=== PATIENT | male | born 1950 | race Caucasian/White ===

== ENCOUNTER → 2018-07-15 | Outpatient (CLI) | payer BC ==
--- NOTE | 2018-07-15 15:30 | US ---
EXAMINATION TYPE: US extremity nonvasculr ltd LT DATE OF EXAM: 07/15/2018 COMPARISON: CLINICAL HISTORY: M71.22 synovial fluid. Posterior left knee discomfort with slight protrusion. No i njury. Posterior left knee scanned. Nonvascular complex mass seen = 5.9 x 6.1 x 3.2 cm. Contralateral images taken. IMPRESSION: Suspect moderate to large size nonsimple popliteal/Odell's cyst. This can be confirmed w ith knee MRI if desired.
== END | disposition home or self-care (01) ==
LOC: RADUSWWP 11:28
PROVIDERS: ATTEND Family Medicine
DX: M71.22 Synovial cyst of popliteal space [Baker], left knee (principal)

== ENCOUNTER → 2019-05-15 | Outpatient (CLI) | payer BC ==
--- NOTE | 2019-05-15 15:14 | US ---
EXAMINATION TYPE: US venous doppler duplex LE RT DATE OF EXAM: 05/15/2019 2:07 PM COMPARISON: NONE CLINICAL HISTORY: M79.661,Pain in right lower leg I80.9 Phlebitis an. Swelling right lower leg after pushing water out of outside waterbed. SIDE PERFORMED: Right TECHNIQUE: The lower extremity deep venous system is examined utilizing real time linear array sonog eleni with graded compression, doppler sonography and color-flow sonography. VESSELS IMAGED: Common Femoral Vein Deep Femoral Vein Greater Saphenous Vein * Femoral Vein Popliteal Vein limitedly seen due to anterior mass compression on vein Proximal Calf Veins (* superficial vessels) Right Leg: Negative for DVT as able to visualize due to muscle mass compression effect on vessels. R ight PTV compression is documented. possible muscle tear from popliteal fossa distally to ankle level with heterogeneous muscle appearance and complex fluid area noted mid and inferiorly = 34.3 x 6.4 x 5.3cm. IMPRESSION: 1. No definite evidence for DVT. 2. Intramuscular tear with hematoma.
== END | disposition home or self-care (01) ==
LOC: RADUSWWP 14:03
PROVIDERS: ATTEND Orthopaedic Surgery Hand Surgery
DX: S86.911A Strain of unspecified muscle(s) and tendon(s) at lower leg level, right leg, initial encounter (principal); S80.11XA Contusion of right lower leg, initial encounter

== ENCOUNTER 2019-05-20 12:46 | Observation (INO) | payer BC, MEDICARE ==
[2019-05-20 12:53] VITALS: RESP 18
--- NOTE | 2019-05-20 13:28 | ED ---
General Adult HPI - General Chief complaint: Extremity Injury, Lower Stated complaint: Rt leg swelling Time Seen by Provider: 05/20/19 13:02 Source: patient Mode of arrival: ambulatory Limitations: no limitations - History of Present Illness Initial comments: Dictation was produced using [employer] dictation software. please excuse any gra mmatical, word or spelling errors. Chief Complaint: 69-year-old male presents with right calf pain. History of Present Illness: 69-year-old male presents with right calf pain. Proximally 5 days ago he was seen in the emergency department for right calf pain and swelling. He had ultrasound performed that time showing intramuscular tear with small hematoma. He states the swelling in his leg went down since initial presentation however he does complain of some significant right calf pain. Patient not on any anticoagulation medications. She doesn't remember any specific inciting event causing injury to his right muscle. Denies any shortness of breath no chest pain The ROS documented in this emergency department record has been reviewed and confirmed by me. Those systems with pertinent positive or negative responses have been documented in the HPI. All other systems are other negative and/or noncontributory. PHYSICAL EXAM: General Impression: Alert and oriented x3, not in acute distress HEENT: Normocephalic atraumatic, extra-ocular movements intact, pupils equal and reactive to light bilaterally, mucous membranes moist. Cardiovascular: Heart regular rate and rhythm, S1&S2 audible, no murmurs, rubs or gallops Chest: Lungs clear to auscultation bilaterally, no rhonchi, no wheeze, no rales Abdomen: Bowel sounds present, abdomen soft, non-tender, non-distended, no organomegaly Musculoskeletal: Pulses present and equal in all extremities, 2+ pitting edema of the right lower extremity compared to the left with tenderness to Motor: no focal deficits noted Neurological: CN II-XII grossly intact, no focal motor or sensory deficits noted Skin: Intact with no visualized rashes Psych: Normal affect and mood ED course: 69 y old male presents with right calf pain. Patient was seen in the emergency department 5 days ago had a negative ultrasound for deep venous thrombosis. He was ever found to have a calf tear. On arrival are within acceptable limits. Laboratory evaluation obtained. CBC, metabolic panel is unremarkable. Computed tomography scan of the lower extremity was obtained showing heterogeneous hypodensity involving the medial gastrocnemius. Could represent intramuscular hematoma versus hemorrhagic neoplasm sarcoma. Patient denies any overt history of trauma. It sounds like his symptoms have been progressive and atraumatic. There is concern for new diagnosis of soft tissue cancer. Is also incidental findings of bladder wall thickening. Patient does not have any bladder symptoms at this time. Results were discussed with patient. They requested to be admitted to observation unit with orthopedic surgery on consult. [facility] seen [facility] with a doctor in the past. He will be placed on consult. - Related Data Home Medications Medication Instructions Recorded Confirmed Atorvastatin [Lipitor] 20 mg PO HS 05/20/19 05/20/19 Levothyroxine Sodium [Synthroid] 75 mcg PO DAILY 05/20/19 05/20/19 Lisinopril 30 mg PO HS 05/20/19 05/20/19 Allergies Allergy/AdvReac Type Severity Reaction Status Date / Time Penicillins Allergy Rash/Hives Verified 05/20/19 13:23 Review of Systems ROS Statement: Those systems with pertinent positive or pertinent negative responses have been documented in the HPI. ROS Other: All systems not noted in ROS Statement are negative. Past Medical History Past Medical History: No Reported History History of Any Multi-Drug Resistant Organisms: None Reported Past Surgical History: No Surgical Hx Reported Past Psychological History: No Psychological Hx Reported Smoking Status: Never smoker Past Alcohol Use History: Occasional Past Drug Use History: Unable to Obtain General Exam Limitations: no limitations Course Vital Signs 05/20/19 12:50 Temperature 98.3 F Pulse Rate 78 Respiratory 18 Rate Blood Pressure 145/79 O2 Sat by Pulse 97 Oximetry Medical Decision Making - Lab Data Result diagrams: 05/20/19 13:51 05/20/19 13:51 Lab Results 05/20/19 05/20/19 Range/Units 13:51 13:51 WBC 9.3 (3.8-10.6) k/uL RBC 3.62 L (4.30-5.90) m/uL Hgb 11.5 L (13.0-17.5) gm/dL Hct 33.7 L (39.0-53.0) % MCV 93.1 (80.0-100.0) fL MCH 31.6 (25.0-35.0) pg MCHC 34.0 (31.0-37.0) g/dL RDW 14.3 (11.5-15.5) % Plt Count 170 (150-450) k/uL Neutrophils % 76 % Lymphocytes % 11 % Monocytes % 7 % Eosinophils % 4 % Basophils % 1 % Neutrophils # 7.1 (1.3-7.7) k/uL Lymphocytes # 1.1 (1.0-4.8) k/uL Monocytes # 0.6 (0-1.0) k/uL Eosinophils # 0.3 (0-0.7) k/uL Basophils # 0.1 (0-0.2) k/uL Sodium 140 (137-145) mmol/L Potassium 4.5 (3.5-5.1) mmol/L Chloride 106 (98-107) mmol/L Carbon Dioxide 28 (22-30) mmol/L Anion Gap 6 mmol/L BUN 19 (9-20) mg/dL Creatinine 0.98 (0.66-1.25) mg/dL Est GFR (CKD-EPI)AfAm >90 (>60 ml/min/1.73 sqM) Est GFR (CKD-EPI)NonAf 79 (>60 ml/min/1.73 sqM) Glucose 108 H (74-99) mg/dL Calcium 9.2 (8.4-10.2) mg/dL Disposition Clinical Impression: Calf pain Disposition: ADMITTED IP TO THIS HOSP Condition: Fair Referrals: Cody Toney MD [Primary Care Provider] - 1-2 days Decision Time: 16:47
[2019-05-20 14:08] LABS: Basophils # (A) 0.1 k/uL (0-0.2); Basophils % (A) 1 %; Eosinophils # (A) 0.3 k/uL (0-0.7); Eosinophils % (A) 4 %; HCT 33.7 % (39.0-53.0); HGB 11.5 gm/dL (13.0-17.5); Lymphocytes # (A) 1.1 k/uL (1.0-4.8); Lymphocytes % (A) 11 %; MCH 31.6 pg (25.0-35.0); MCV 93.1 fL (80.0-100.0); Mean Platelet Volume 9.8; Monocytes # (A) 0.6 k/uL (0-1.0); Monocytes % (A) 7 %; Neutrophils # (A) 7.1 k/uL (1.3-7.7); Neutrophils % (A) 76 %; Platelet Count 170 k/uL (150-450); RBC 3.62 m/uL (4.30-5.90); RDW 14.3 % (11.5-15.5); WBC 9.3 k/uL (3.8-10.6)
[2019-05-20 14:15] LABS: African American GFR (CKD) >90 (>60 ml/min/1.73 sqM); Anion Gap 6 mmol/L; Blood Urea Nitrogen 19 mg/dL (9-20); Calcium 9.2 mg/dL (8.4-10.2); Carbon Dioxide 28 mmol/L (22-30); Chloride 106 mmol/L (98-107); Glucose 108 mg/dL (74-99); Non-African American GFR(CKD) 79 (>60 ml/min/1.73 sqM); Potassium 4.5 mmol/L (3.5-5.1); Sodium 140 mmol/L (137-145)
--- NOTE | 2019-05-20 16:21 | CT ---
EXAMINATION TYPE: CT lower extremity RT w con DATE OF EXAM: 05/20/2019 COMPARISON: None HISTORY: 69-year-old male Right leg swelling, pain, difficulty walking. TECHNIQUE: Contiguous axial scanning of the of the right lower extremity or the midfoot level perform ed with IV Contrast, patient injected with 100 mL of Isovue 300. Coronal/sagittal reconstructions per formed. CT DLP: 991.5 mGycm Automated exposure control for dose reduction was used. FINDINGS: Scanning was performed through into the midfoot region. Circumferential bladder wall thickening. Correlate to exclude cystitis. Stellate sclerotic focus within the right femoral neck probably a bone island. Consider six-month fol low-up radiograph to reassess. Mild degenerative change of the right hip. Moderate right and small left hydroceles. This should be correlated clinically. There is extensive subcutaneous soft tissue swelling at the level of the hand likely with small to mo derate knee joint effusion and Odell's cyst measuring approximately 4 cm long. There is marked heterogeneity in enlargement with associated increased density involving the medial g astrocnemius. No soft tissue gas is seen. Bones: No osseous destructive process seen. IMPRESSION: 1. EXPANSION AND HETEROGENEOUS HYPERDENSITY INVOLVING THE MEDIAL GASTROCNEMIUS. CORRELATE FOR EXTENSI VE INTRAMUSCULAR HEMATOMA. CLOSE CLINICAL SURVEILLANCE IS RECOMMENDED TO ENSURE GLANDULAR INVOLUTION AND TO EXCLUDE AN UNDERLYING HEMORRHAGIC NEOPLASM/SARCOMA. CORRELATE FOR ANY ANTICOAGULATION STATUS. 2. SMALL LEAKING ODELL'S CYST, SMALL KNEE JOINT EFFUSION. CIRCUMFERENTIAL BLADDER WALL THICKENING. CO RRELATE TO EXCLUDE CYSTITIS. 3. STELLATE, SCLEROTIC LESION WITHIN THE FEMORAL NECK PROBABLY REPRESENTS A BONE ISLAND. CONSERVATIVE 3-6 MONTH FOLLOW-UP RADIOGRAPHS RECOMMENDED TO REASSESS.
[2019-05-20] MEDS ORDERED: oxyCODONE-APAP 5-325MG 1 EACH TAB PO PRN (16:44)
[2019-05-20] MEDS ORDERED: ONDANSETRON 4 MG/2 ML VIAL IVP PRN (16:44)
[2019-05-20] MEDS ORDERED: NALOXONE 0.4 MG/ML 1 ML VIAL IV PRN (16:44)
[2019-05-20] MEDS ORDERED: SODIUM CHLORIDE 0.9% 1,000 ML IV SCH (16:45)
[2019-05-20 17:21] LABS: Appearance,Urine Clear (Clear); Bacteria,Urine Occasional /hpf; Bilirubin,Urine Negative (Negative); Blood,Urine Negative (Negative); Color,Urine Yellow; Glucose,Urine (UA) Negative (Negative); Ketones,Urine Negative (Negative); Leukocyte Esterase,Urine Small (Negative); Mucus,Urine Rare /hpf; Nitrite,Urine Positive (Negative); Protein,Urine Negative (Negative); Specific Gravity,Urine 1.042 (1.001-1.035); Urobilinogen,Urine <2.0 mg/dL (<2.0); WBC,Urine 7 /hpf (0-5)
--- NOTE | 2019-05-20 18:49 | P.HPIM ---
History of Present Illness H&P Date: 05/20/19 Chief Complaint: right calf swelling Patient is a 69-year-old male past medical history of hypertension, dyslipidemia, and hypothyroidism who presented to the emergency department due to right calf pain and swelling. On arrival to the ER his vital signs were within normal limits. Laboratory analysis showed a hemoglobin of 11.5. Was otherwise unremarkable. He underwent a CT of the right lower extremity which showed expansion and heterogeneous hyperdensity involving the medial gastrocnemius, correlate for extensive intramuscular hematoma. Recommended close clinical surveillance to ensure that it resolves fully and is not related to hemorrhagic neoplasm or sarcoma. It also noted a stellate sclerotic lesion within the left femoral neck probably representing a bone island. In the ER there is concern for this being a malignancy and they requested admission. I requested they contact Orthopedic surgery who suggested observation and they will evaluate the patient in the morning. Patient seen and examined at bedside. He reports that his swelling started approximately 2 weeks ago and has steadily increased. His feels as though the initial event may have started approximately 4 weeks ago. History of trauma: At the end of March he was having issues with his sub pump in this required extensive digging into the ground and removal of parts by the patient and he had started complaining of some right knee pain then. On April 30 or they had family in from out of town. In their yard they had assembled an mattress that holds 250 gallons of water, with this needed to be disassembled it was noted that the drain for the water was at the top of the hill and not towards the bottom. Mr. Beatty then used his right leg to push down on the mattr ess and continue rolling forward to force the water out. He did not note any popping or tearing sensation. Several days later he noted swelling in his right lower extremity. This progressively got worse over time. During this time he was continuing to work out including using the elliptical and doing basic strength training exercises. On 05/15 he noted a large increase in swelling and pain and inability to ambulate on his right calf. He therefore [facility]. He saw Rosalinda Sorensen who then ordered an ultrasound of the leg which showed a 34.3 x 6.4 x 5.3 cm fluid collection consistent with an intramuscular hematoma. He feels as though the swelling and pain have gone slightly better, however his children that are in the medical field were concerned about the swelling and pain and felt they were abnormal and encouraged him to go to the ER. He denies any weight loss, weight gain, night sweats, recurrent fevers, unusual chest pain, or shortness of breath. He denies any blood in his urine, difficulties starting or stopping his stream, or blood in his stool. He is a lifelong nonsmoker. Review of Systems Pertinent positives and negatives as discussed in HPI, a complete review of systems was performed and all other systems are negative. 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, works out daily - Past Family History Mother Additional Family Medical History / Comment(s): no known medical problem at age 87 Father Additional Family Medical History / Comment(s): at age 78 with dementia Medications and Allergies Home Medications Medication Instructions Recorded Confirmed Type Atorvastatin [Lipitor] 20 mg PO HS 05/20/19 05/20/19 History Levothyroxine Sodium [Synthroid] 75 mcg PO DAILY 05/20/19 05/20/19 History Lisinopril 30 mg PO HS 05/20/19 05/20/19 History Allergies Allergy/AdvReac Type Severity Reaction Status Date / Time Penicillins Allergy Rash/Hives Verified 05/20/19 13:23 Physical Exam Osteopathic Statement: *. No significant issues noted on an osteopathic structural exam other than those noted in the History and Physical/Consult. Vitals: Vital Signs Temp Pulse Resp BP Pulse Ox 05/20/19 17:07 98.6 F 55 L 18 159/90 99 05/20/19 12:50 98.3 F 78 18 145/79 97 Intake and Output 05/20/19 05/20/19 05/20/19 06:59 14:59 22:59 Other: Weight 90.718 kg General: non toxic, no distress, appears at stated age, normal weight Derm: no unusual rashes/lesions no unusual ecchymoses, warm, dry Head: atraumatic, normocephalic, symmetric Eyes: EOMI, no lid lag, anicteric sclera, pupils equal round reactive to light ENT: Nose and ears atraumatic, no thrush, no pharyngeal erythema Neck: No thyromegaly, no cervical lymphadenopathy, trachea midline, supple Mouth: no lip lesion, mucus membranes moist Cardiovascular: S1S2 reg, no murmur, positive posterior tibial pulse bilateral, 2+ edema right lower extremity, capillary refill less than 2 seconds Lungs: CTA bilateral, no rhonchi, no rales , no accessory muscle use Abdominal: soft, nontender to palpation, no guarding, no appreciable organomegaly, normal bowel sounds Ext: no gross muscle atrophy, muscle strength 5 out of 5 in all 4 upper extremities grossly, no contractures, -Right calf with extensive swelling that is nonpitting, positive posterior tibial and dorsalis pedis pulses. There is no increased pain with plantar dorsiflexion of the foot, flexion or extension at the knee, patient does not seem to be limited in range of motion. Neuro: CN II-XI grossly intact, light touch intact all 4 extremities, finger to nose within normal limits, Psych: Alert, oriented, appropriate affect Results CBC & Chem 7: 05/20/19 13:51 05/20/19 13:51 Labs: Abnormal Lab Results - Last 24 Hours (Table) 05/20/19 05/20/19 05/20/19 Range/Units 13:51 13:51 17:05 RBC 3.62 L (4.30-5.90) m/uL Hgb 11.5 L (13.0-17.5) gm/dL Hct 33.7 L (39.0-53.0) % Glucose 108 H (74-99) mg/dL Ur Specific [place] 1.042 H (1.001-1.035) Ur Leukocyte Esterase Small H (Negative) Urine WBC 7 H (0-5) /hpf Urine Bacteria Occasional H (None) /hpf Urine Mucus Rare H (None) /hpf Comments: CT lower extremity reviewed Thrombosis Risk Factor Assmnt - DVT/VTE Prophylaxis DVT/VTE Prophylaxis: Low risk, early ambulation encouraged Assessment and Plan Assessment: Right medial gastrocnemius tear with intramuscular hematoma -Rest, ice, compression, and elevation -Would recommend that the patient does not continue to work out during his injury -Await orthopedic consultation -Likely discharge home in a.m. -We will need to follow for complete resolution to ensure that there is not an oncologic underlying process. Anemia, suspect related to acute blood loss secondary to hematoma -Repeat CBC in 1 week -Follow up with Dr. Toney Hypertension, controlled -Resume home lisinopril Dyslipidemia -Lipitor Hypothyroidism -Synthroid The patient is placed in observation with an anticipated less than 2 per night stay for evaluation of gastronemious tear. Surrogate decision-maker: DVT prophylaxis: ying ambulation Discussed with: patient, ED physician, Ortho Anticipated discharge date: in AM Anticipated discharge place: home A total of 65 minutes was spent on the care of this complex patient more than 50% of the time was spent in counseling and care coordination.
[2019-05-20] MEDS ORDERED: ACETAMINOPHEN TAB 325 MG TAB PO PRN (19:17)
[2019-05-20] MEDS ORDERED: ATORVASTATIN 20 MG TAB PO SCH (21:00)
[2019-05-20] MEDS ORDERED: LISINOPRIL 10 MG TAB PO SCH (21:00)
[2019-05-20 23:10] VITALS: TEMP 97.9
[2019-05-21 06:09] VITALS: BP 143/70; PULSE 55
[2019-05-21] MEDS ORDERED: LEVOTHYROXINE 75 MCG TAB PO SCH (06:30)
[2019-05-21] MEDS ORDERED: PANTOPRAZOLE 40 MG TABLET PO SCH (07:30)
--- NOTE | 2019-05-21 09:03 | P.CNOR ---
History of Present Illness - [facility] Consult date: 05/21/19 History of present illness: This is a 69-year-old male who is admitted for right lower extremity pain. Patient states that about 2 weeks ago he was using the right leg to move a heavy water toy and a few days later developed pain and swelling in the right calf. Patient states that he waited for his symptoms to improve, but about 2 weeks later the pain worsened. Patient then presented as an outpatient to [facility] for evaluation. A Doppler ultrasound was done on 05/15/2019 and was negative for DVT, but showed evidence for intramuscular hematoma and muscle tear. Patient states that he has been elevating, icing and resting the right leg. Patient states that his pain has been slightly improving and not getting worse, but his children encouraged him to go to the emergency room. Patient reports some improvement in pain today. Patient denies any history of blood clots, cancer, fever/chills, weight loss or night sweats. Patient is a nonsmoker. Patient's past medical history is significant for hypertension, dyslipidemia and hypothyroidism. Review of Systems On exam patient is resting comfortably in bed in no acute distress. There is mild swelling of the right lower leg. Compartments are soft. There is tenderness to palpation over the proximal medial aspect of the right calf muscle. There is no tenderness to palpation over the lateral aspect of the right calf muscle. Patient has full range of motion of the right foot and ankle without difficulty. Dorsalis pedis pulse is 2+. Right lower extremity is warm and well perfused. There is no erythema or ecchymosis and skin is intact. Sensation intact. Neurovascular status and circulatory status are intact. Past Medical History Past Medical History: No Reported History Additional Past Medical History / Comment(s): Hypertension, dyslipidemia, hypothyroidism History of Any Multi-Drug Resistant Organisms: None Reported Past Surgical History: No Surgical Hx Reported Past Psychological History: No Psychological Hx Reported Smoking Status: Never smoker Past Alcohol Use History: Occasional Past Drug Use History: Unable to Obtain - Past Family History Mother Additional Family Medical History / Comment(s): no known medical problem at age 87 Father Additional Family Medical History / Comment(s): at age 78 with dementia Medications and Allergies Home Medications Medication Instructions Recorded Confirmed Type Atorvastatin [Lipitor] 20 mg PO HS 05/20/19 05/20/19 History Levothyroxine Sodium [Synthroid] 75 mcg PO DAILY 05/20/19 05/20/19 History Lisinopril 30 mg PO HS 05/20/19 05/20/19 History Allergies Allergy/AdvReac Type Severity Reaction Status Date / Time Penicillins Allergy Rash/Hives Verified 05/20/19 13:23 Results A venous Doppler ultrasound of the lower lower extremity dated 05/15/2019 is negative for DVT. There is evidence for intramuscular tear with hematoma on ult rasound. A CT report of the right lower extremity dated 05/20/2019 shows: 1. Expansion heterogenous hyperdensity involving the medial gastrocnemius. Correlate for extensive intramuscular hematoma. Close clinical surveillance was recommended to ensure gradual involution and to exclude underlying hemorrhagic neoplasm/sarcoma. Correlate for any anticoagulation status. 2. Small leaking Odell's cyst, small knee joint effusion. - Labs Labs: Abnormal Lab Results - Last 24 Hours (Table) 05/20/19 05/20/19 05/20/19 Range/Units 13:51 13:51 17:05 RBC 3.62 L (4.30-5.90) m/uL Hgb 11.5 L (13.0-17.5) gm/dL Hct 33.7 L (39.0-53.0) % Glucose 108 H (74-99) mg/dL Ur Specific [place] 1.042 H (1.001-1.035) Ur Leukocyte Esterase Small H (Negative) Urine WBC 7 H (0-5) /hpf Urine Bacteria Occasional H (None) /hpf Urine Mucus Rare H (None) /hpf H & H 05/20/19 Range/Units 13:51 Hgb 11.5 L (13.0-17.5) gm/dL Hct 33.7 L (39.0-53.0) % Result Diagrams: 05/20/19 13:51 05/20/19 13:51 Assessment and Plan (1) Strain of right gastrocnemius muscle Current Visit: Yes Status: Acute Code(s): S86.111A - STRAIN MUSC/TEND POST GRP AT LOW LEG LEVEL, RIGHT LEG, INIT SNOMED Code(s): 702361356 (2) Calf pain Current Visit: Yes Status: Acute Code(s): M79.669 - PAIN IN UNSPECIFIED LOWER LEG SNOMED Code(s): 154979390 Plan: 1. Discussed with the patient that imaging shows evidence for strain of medial gastrocnemius muscle with intramuscular hematoma. 2. Recommend rest, ice/heat, elevation and compression with an Lino wrap. An Lino wrap is applied at bedside. 3. Discussed option for a walking boot, but patient declines at this time. Patient states that he has crutches and a walker at home that he can use to rest the right leg. 4. Patient has a follow-up with [facility] on 05/22/2019. Discussed option to schedule an MRI as an outpatient and the office will be in contact with him tomorrow. Recommend close follow-up as an outpatient. Patient is receptive to this plan. Patient is in good condition for discharge home from an orthopedic standpoint.
--- NOTE | 2019-05-21 09:51 | P.DS ---
Providers Date of admission: 05/20/19 16:44 Expected date of discharge: 05/21/19 Attending physician: Iris Mensah DO Consults: 05/20/19 16:41 Consult Physician Routine Consulting Provider: Brian Mcintyre Consult Reason/Comments: gastroc tear vs. mass Do you want consulting provider notified?: Yes Primary care physician: Cody Toney Hospital Course: Discharge Diagnosis: Right gastrocnemius suspect strain versus tear Intramuscular hematoma Lower extremity edema Hypertension Dyslipidemia Hypothyroidism Hospital Course: Patient is a 69-year-old male past medical history of hypertension, dyslipidemia, and hypothyroidism who presented to the emergency department due to right calf pain and swelling. On arrival to the ER his vital signs were within normal limits. Laboratory analysis showed a hemoglobin of 11.5. Was otherwise unremarkable. He underwent a CT of the right lower extremity which showed expansion and heterogeneous hyperdensity involving the medial gastrocnemius, correlate for extensive intramuscular hematoma. Recommended close clinical surveillance to ensure that it resolves fully and is not related to hemorrhagic neoplasm or sarcoma. It also noted a stellate sclerotic lesion within the left femoral neck probably representing a bone island. In the ER there is concern for this being a malignancy and they requested admission. He was subsequently admitted and the leg was elevated. He was seen by orthopedic surgery who feels this is likely reflective of the right gastrocnemius strain with resulting intermuscular hematoma. He has recommendations to stay off of the leg is able, rest, pressured, place, and elevation. He will follow up with [facility] in the morning at his already scheduled outpatient appointment. They will consider MRI as clinically indicated. Patient seen and examined at bedside. Swelling is unchanged, no chest pain, no shortness of breath, no nausea Vital signs reviewed and stable. General: non toxic, no distress, appears at stated age Derm: warm, dry Head: atraumatic, normocephalic, symmetric Eyes: EOMI, no lid lag, anicteric sclera Cardiovascular: S1S2 reg, no murmur, positive posterior tibial pulse bilateral, Lungs: CTA bilateral, no rhonchi, no rales , no accessory muscle use Ext: no gross muscle atrophy, 2+ nonpitting edema right lower extremity, no contractures Psych: Alert, oriented, appropriate affect A total of 20 minutes of time were spent preparing this complex discharge summary . Pertinent Studies: CT right lower extremity in expansion and heterogeneous hyperdensity involving the medial gastrocnemius correlate for extensive intramuscular hematoma recommended close clinical surveillance, small leaking bakers cyst with small knee joint effusion, stellate sclerotic lesion within the femoral neck. Patient Condition at Discharge: Stable Plan - Discharge Summary New Discharge Prescriptions: Continue Lisinopril 30 mg PO HS Levothyroxine Sodium [Synthroid] 75 mcg PO DAILY Atorvastatin [Lipitor] 20 mg PO HS Discharge Medication List Atorvastatin [Lipitor] 20 mg PO HS 05/20/19 [History] Levothyroxine Sodium [Synthroid] 75 mcg PO DAILY 05/20/19 [History] Lisinopril 30 mg PO HS 05/20/19 [History] Follow up Appointment(s)/Referral(s): Rosal[facility] Lo NPC [Nurse Practitioner] - 05/22/19 Cody Toney MD [Primary Care Provider] - 1-2 days Activity/Diet/Wound Care/Special Instructions: Diet: regular Activity: Ambulation as tolerated Keep right calf elevated with compressive Lino wrap, apply ice/in alternating fashion, do not return to exercise until cleared by orthopedics. Will have close outpatient follow-up with orthopedics.
== END 2019-05-21 09:57 | disposition home or self-care (01) ==
LOC: EC 12:46 → 4MS4W 16:44
PROVIDERS: ADMIT Internal Medicine; ATTEND Internal Medicine
DX: M79.661 Pain in right lower leg (principal); R60.0 Localized edema; I10 Essential (primary) hypertension; E78.5 Hyperlipidemia, unspecified; E03.9 Hypothyroidism, unspecified; M79.81 Nontraumatic hematoma of soft tissue; M79.89 Other specified soft tissue disorders; Z79.899 Other long term (current) drug therapy; Z79.890 Hormone replacement therapy; Z88.0 Allergy status to penicillin; Z81.8 Family history of other mental and behavioral disorders
CPT/HCPCS: 99284; 36415; 80048; 85025; 81001; 87040; 73701; G0378 ×2; Q9967

== ENCOUNTER → 2019-07-14 | Outpatient (CLI) | payer BC ==
[2019-07-14 07:43] LABS: Basophils # (A) 0.1 k/uL (0-0.2); Basophils % (A) 1 %; Eosinophils # (A) 0.3 k/uL (0-0.7); Eosinophils % (A) 4 %; HCT 41.5 % (39.0-53.0); HGB 13.5 gm/dL (13.0-17.5); Lymphocytes # (A) 1.6 k/uL (1.0-4.8); Lymphocytes % (A) 20 %; MCH 30.4 pg (25.0-35.0); MCHC 32.5 g/dL (31.0-37.0); MCV 93.5 fL (80.0-100.0); Mean Platelet Volume 9.8; Monocytes # (A) 0.6 k/uL (0-1.0); Monocytes % (A) 7 %; Neutrophils # (A) 5.2 k/uL (1.3-7.7); Neutrophils % (A) 66 %; Platelet Count 145 k/uL (150-450); RBC 4.44 m/uL (4.30-5.90); RDW 13.1 % (11.5-15.5); WBC 7.9 k/uL (3.8-10.6)
[2019-07-14 17:11] LABS: ALT 20 U/L (10-49); AST 21 U/L (14-35); Albumin/Globulin Ratio 2.63 (1.60-3.17); Alkaline Phosphatase 66 U/L (41-126); BUN/Creat Ratio 12.73 Ratio (12.00-20.00); Calcium 9.5 mg/dL (8.7-10.3); Carbon Dioxide 27.8 mmol/L (21.6-31.8); Chloride 107 mmol/L (96-109); Cholesterol 126 mg/dL (0-200); Globulin 1.6 g/dL (1.6-3.3); Glucose 92 mg/dL (70-110); Potassium 4.6 mmol/L (3.5-5.5); Sodium 143 mmol/L (135-145); Total Bilirubin 0.6 mg/dL (0.2-1.2); Total Protein 5.8 g/dL (6.2-8.2); Triglycerides <50.0 mg/dL (0.0-149.0); VLDL Calculation 9.98 mg/dL (5.00-40.00)
[2019-07-14 17:13] LABS: Iron Saturation 24.76 (15.00-50.00)
== END | disposition home or self-care (01) ==
LOC: LABWHC1 07:26
PROVIDERS: ATTEND Physician Assistant
DX: I10 Essential (primary) hypertension (principal); D64.9 Anemia, unspecified; Z12.5 Encounter for screening for malignant neoplasm of prostate
CPT/HCPCS: 36415; 80053; 80061; 82728; 83540; 83550; 84153; 85025

== ENCOUNTER → 2020-08-12 | Outpatient (CLI) | payer BC ==
[2020-08-12 07:52] LABS: Basophils # (A) 0.1 k/uL (0-0.2); Basophils % (A) 1 %; Eosinophils # (A) 0.3 k/uL (0-0.7); Eosinophils % (A) 5 %; HCT 41.2 % (39.0-53.0); HGB 13.4 gm/dL (13.0-17.5); Lymphocytes # (A) 1.6 k/uL (1.0-4.8); Lymphocytes % (A) 26 %; MCH 31.2 pg (25.0-35.0); MCHC 32.6 g/dL (31.0-37.0); MCV 95.9 fL (80.0-100.0); Mean Platelet Volume 10.5; Monocytes # (A) 0.5 k/uL (0-1.0); Monocytes % (A) 7 %; Neutrophils # (A) 3.7 k/uL (1.3-7.7); Neutrophils % (A) 59 %; Platelet Count 128 k/uL (150-450); RDW 12.7 % (11.5-15.5); WBC 6.3 k/uL (3.8-10.6)
[2020-08-12 11:57] LABS: African American GFR (CKD) 78.4 (60.0-200.0); Albumin/Globulin Ratio 2.35 (1.60-3.17); Anion Gap 6.2 mmol/L (4.00-12.00); BUN/Creat Ratio 14.55 Ratio (12.00-20.00); Carbon Dioxide 27.8 mmol/L (21.6-31.8); Globulin 1.7 g/dL (1.6-3.3); Non-African American GFR(CKD) 67.7 (60.0-200.0); Potassium 4.1 mmol/L (3.5-5.5); Total Bilirubin 0.9 mg/dL (0.2-1.2); Total Protein 5.7 g/dL (6.2-8.2)
[2020-08-12 12:11] LABS: PSA Annual Screen 0.4 ng/mL (0.0-4.0)
== END | disposition home or self-care (01) ==
LOC: LABWHC1 07:08
PROVIDERS: ATTEND Family Medicine
DX: I10 Essential (primary) hypertension (principal); E03.9 Hypothyroidism, unspecified; Z12.5 Encounter for screening for malignant neoplasm of prostate
CPT/HCPCS: 84439; 84481; 80053; 84443; 85025; 36415; G0103